=== PATIENT | female | born 1960 | race African-American/Black ===

== ENCOUNTER 2018-12-26 19:56 | Inpatient (IN) | payer SELFPAY ==
[~2018-12-26] VITALS: Ht 157.5 cm; Wt 83.0 kg
[2018-12-26] MEDS ORDERED: GLIPIZIDE XL10 MG ORAL (20:09)
--- NOTE | 2018-12-26 20:13 | Emergency Room Report ---
History of Present Illness General Chief Complaint: Stroke Symptoms Source: Patient, Family Member Present Illness HPI Is a 58-year-old female with a history of high blood pressure and diabetes. She presents with chief complaint of vision loss and speech difficulty. Onset was acute and occurred about 30 minutes ago. According to her daughter she lost vision on one side of her eye. He could not tell me which side since the patient is confused now. She has some difficulty speaking and her words did not make any sense. They got better the car on the way here but now same as before. At baseline patient is alert oriented 4. She is multilingual. According to her daughter she's not making much sense. There is no trauma. No fever or chills. [facility] most similar symptom in the past but patient never went to the doctor. Usually occur with problem with vision but never speech. No focal deficit. Allergies: Coded Allergies: UNABLE TO ASSESS (Unverified , 12/26/18) Patient History Past Medical History: see triage record, old chart reviewed, DM, HTN Past Surgical History: other Pertinent Family History: none Social History: Denies: smoking Now: No Immunizations: other Reviewed Nursing Documentation: PMH: Agreed; PSxH: Agreed Nursing Documentation-PMH Past Medical History: No History, Except For Hx Hypertension: Yes Hx Diabetes: Yes Review of Systems Eye: Reports: acuity changes; Denies: eye pain, blurred vision ENT: Denies: ear pain, nose congestion, throat swelling Respiratory: Denies: cough, shortness of breath Cardiovascular: Denies: chest pain, palpitations Gastrointestinal: Denies: abdominal pain, diarrhea, nausea, vomiting Musculoskeletal: Denies: back pain, joint pain Skin: Denies: rash Neurological: Denies: headache, numbness Endocrine: Denies: increased thirst, increased urine Hematologic/Lymphatic: Denies: easy bruising All Other Systems: negative except mentioned in HPI Physical Exam vitals with high blood pressure Sp02 EP Interpretation: reviewed, normal General Appearance: well appearing, no apparent distress, alert Head: normocephalic, atraumatic Eyes: bilateral eye PERRL, bilateral eye EOMI ENT: hearing grossly normal, normal pharynx Neck: full range of motion, supple, no meningismus Respiratory: chest non-tender, lungs clear, normal breath sounds Cardiovascular #1: regular rate, rhythm, no murmur Gastrointestinal: normal bowel sounds, non tender, no mass, no organomegaly, no bruit, non-distended Musculoskeletal: back normal, gait/station normal, normal range of motion Neurologic: alert, other - Patient with expressive aphasia. Psychiatric: mood/affect normal Skin: warm/dry Medical Decision Making Diagnostic Impression: Primary Impression: New onset seizure Additional Impressions: Hyperglycemia due to type 2 diabetes mellitus Qualified Codes: E11.65 - Type 2 diabetes mellitus with hyperglycemia Hypertension Qualified Codes: I10 - Essential (primary) hypertension UTI (urinary tract infection) Qualified Codes: N30.00 - Acute cystitis without hematuria ER Course Patient presents with symptoms of confusion and possible stroke. On initial exam she was confused with some expressive aphasia. There was no seizure activity. There is no focal deficit. After the first CT, she had a 32nd tonic- clonic seizure activity with right gaze deviation and left facial droop. Afterward she was postictal and had no focal deficit. I loaded her with Keppra. I also order CT angiogram the brain. Initially, I discussed the case with the neurologist Dr. Aguirre's PA. After she discussed the case with the neurologist, he recommended antiepileptic seizure loading and said that TPA candidate be considered versus transfer for endovascular TPA if there is embolic event. I held off on the TPA since she is now nonfocal. I suspect that this is due to seizure activity. CT is negative also. I discussed the case with Dr. Jacob and Dr. Boyce for admission. Lab Results Impression labs with hyperglycemia EKG Diagnostic Results Rate: normal Rhythm: NSR ST Segments: no acute changes ASA given to the pt in ED: Yes Rhythm Strip Diag. Results EP Interpretation: yes Rate: 91 Rhythm: NSR, no PVC's, no ectopy Chest X-Ray Diagnostic Results Chest X-Ray Diagnostic Results : Chest X-Ray Ordered: Yes # of Views/Limited/Complete: 1 View Indication: Chest Pain EP Interpretation: Yes Interpretation: no consolidation, no effusion, no pneumothorax, no acute cardiopulmonary disease Impression: No acute disease Electronically Signed by: Siva Coppola MD CT/MRI/US Diagnostic Results CT/MRI/US Diagnostic Results #1: Imaging Test Ordered: CT head Impression Neg per radiologist. CT/MRI/US Diagnostic Results #2: Imaging Test Ordered: CTA brain Impression Neg per radiologist. Status: improved Disposition: ADMITTED INPATIENT Condition: Serious Siva Coppola MD Dec 26, 2018 20:13
[2018-12-26 20:26] VITALS: BP 119/74
[2018-12-26 20:44] LABS: ANION GAP 10 mmol/L (5-15); BLOOD UREA NITROGEN 12 mg/dL (7-18); CARBON DIOXIDE 26 MMOL/L (21-32); CHLORIDE 97 MMOL/L (98-107); CREATININE 1.1 MG/DL (0.55-1.30); POTASSIUM 4.2 MMOL/L (3.5-5.1); SODIUM 133 MMOL/L (136-145)
[2018-12-26] MEDS ORDERED: Isovue-370 150ml vial INJ PRN (20:45)
[2018-12-26 20:46] LABS: EOSINOPHILS % (AUTO) 2.3 % (0.0-3.0); HEMATOCRIT 37.3 % (37.0-47.0); HEMOGLOBIN 12.2 G/DL (12.0-16.0); LYMPHOCYTES % (AUTO) 45.7 % (20.0-45.0); MEAN CORPUSCULAR VOLUME 88 FL (80-99); MONOCYTES % (AUTO) 7.4 % (1.0-10.0); NEUTROPHILS % (AUTO) 42.5 % (45.0-75.0); PLATELET COUNT 307 K/UL (150-450); RED BLOOD COUNT 4.22 M/UL (4.20-5.40); RED CELL DISTRIBUTION WIDTH 13.8 % (11.6-14.8); WHITE BLOOD COUNT 8.3 K/UL (4.8-10.8)
[2018-12-26 20:48] LABS: ALANINE AMINOTRANSFERASE 30 U/L (12-78); ALBUMIN 3.8 G/DL (3.4-5.0); ALBUMIN/GLOBULIN RATIO 0.9 (1.0-2.7); ALKALINE PHOSPHATASE 74 U/L (46-116); ASPARTATE AMINO TRANSFERASE 12 U/L (15-37); BILIRUBIN,TOTAL 0.2 MG/DL (0.2-1.0); CHOLESTEROL 245 MG/DL (< 200); HDL CHOLESTEROL 71 MG/DL (40-60); TRIGLYCERIDES 75 MG/DL (30-150)
[2018-12-26 20:53] LABS: INR 0.9 (0.9-1.1)
[2018-12-26 21:00] VITALS: BP 130/80
[2018-12-26] MEDS ORDERED: LORazepam Inj 2mg/ml 1ml IV ONE (21:15)
[2018-12-26] MEDS ORDERED: levETIRAcetam 1,000mg/NS100ml 100 ML IVPB ONE (21:15)
[2018-12-26] MEDS ORDERED: Insulin Human Regular 100units/ml 3ml IV ONE (21:30)
[2018-12-26 21:44] LABS: APPEARANCE,URINE CLEAR; BILIRUBIN, URINE NEGATIVE (NEGATIVE); COLOR,URINE PALE YELLOW; GLUCOSE, URINE (UA) 4+ (NEGATIVE); KETONES,URINE NEGATIVE (NEGATIVE); LEUKOCYTE ESTERASE ,URINE 3+ (NEGATIVE); NITRITE,URINE NEGATIVE (NEGATIVE); PH,URINE 5 (4.5-8.0); PROTEIN,URINE 1+ (NEGATIVE); UROBILINOGEN,URINE NORMAL MG/DL (0.0-1.0)
[2018-12-26] MEDS ORDERED: D5 1/2NS 1,000 ML IV SCH (21:50)
[2018-12-26] MEDS ORDERED: Promethazine/Codeine 5ml UD ORAL PRN (22:00)
[2018-12-26] MEDS ORDERED: Nitroglycerin Subl 0.4mg tab SL PRN (22:00)
[2018-12-26] MEDS ORDERED: LORazepam Inj 2mg/ml 1ml IV PRN (22:00)
[2018-12-26] MEDS ORDERED: Morphine Sulfate 2mg/ml Inj(IV/IM USE ONLY) IVP PRN (22:00)
[2018-12-26] MEDS ORDERED: Mylanta II UD 30ml ORAL PRN (22:00)
[2018-12-26] MEDS ORDERED: Miralax 17gm pkt ORAL PRN (22:00)
[2018-12-26] MEDS ORDERED: Albuterol/Ipratropium 3ml neb HHN PRN (22:00)
[2018-12-26] MEDS ORDERED: cefTRIAXone 1 GM in NS 55 ML IVPB ONE (22:30)
[2018-12-26 23:16] VITALS: BP 122/76
[2018-12-26 23:50] VITALS: BP 128/74
[2018-12-27] MEDS ORDERED: ASPIR 8181 MG ORAL (01:07)
[2018-12-27] MEDS ORDERED: METFORMIN HCL500 M1 ORAL (01:07)
[2018-12-27 04:00] VITALS: BP 117/69
[2018-12-27 06:37] LABS: BASOPHILS % (AUTO) 0.8 % (0.0-2.0); EOSINOPHILS % (AUTO) 0.8 % (0.0-3.0); HEMATOCRIT 37.8 % (37.0-47.0); HEMOGLOBIN 12.4 G/DL (12.0-16.0); MEAN CORPUSCULAR VOLUME 90 FL (80-99); MONOCYTES % (AUTO) 5.2 % (1.0-10.0); NEUTROPHILS % (AUTO) 65.2 % (45.0-75.0); PLATELET COUNT 303 K/UL (150-450); RED BLOOD COUNT 4.22 M/UL (4.20-5.40); RED CELL DISTRIBUTION WIDTH 14.6 % (11.6-14.8); WHITE BLOOD COUNT 8.3 K/UL (4.8-10.8)
[2018-12-27 06:45] LABS: ALANINE AMINOTRANSFERASE 29 U/L (12-78); ALBUMIN 3.6 G/DL (3.4-5.0); ALBUMIN/GLOBULIN RATIO 0.9 (1.0-2.7); ALKALINE PHOSPHATASE 67 U/L (46-116); ANION GAP 9 mmol/L (5-15); ASPARTATE AMINO TRANSFERASE 16 U/L (15-37); BILIRUBIN,TOTAL 0.3 MG/DL (0.2-1.0); BLOOD UREA NITROGEN 11 mg/dL (7-18); CALCIUM 9.7 MG/DL (8.5-10.1); CARBON DIOXIDE 27 MMOL/L (21-32); CHLORIDE 100 MMOL/L (98-107); CHOLESTEROL 233 MG/DL (< 200); CREATININE 0.8 MG/DL (0.55-1.30); HDL CHOLESTEROL 73 MG/DL (40-60); POTASSIUM 4.1 MMOL/L (3.5-5.1); SODIUM 136 MMOL/L (136-145); TRIGLYCERIDES 44 MG/DL (30-150)
[2018-12-27] MEDS ORDERED: GLIPIZIDE5 MG ORAL (07:08)
[2018-12-27] MEDS ORDERED: GLIPIZIDE XL10 MG ORAL (07:08)
[2018-12-27 07:21] LABS: AMMONIA 16 umol/L (11-32)
[2018-12-27] MEDS: NovoLOG Insulin Flexpen SUBQ SCH ×2 (07:30→11:30)
[2018-12-27 08:00] VITALS: BP 114/72
[2018-12-27] MEDS ORDERED: Aspirin EC 81mg tab ORAL SCH (09:00)
[2018-12-27] MEDS ORDERED: metFORMIN 500mg tab ORAL SCH (09:00)
[2018-12-27] MEDS ORDERED: Heparin 5000 units/ml inj SUBQ SCH (09:00)
--- NOTE | 2018-12-27 11:02 | Diagnostic Imaging Report ---
Indication: Altered Mental status. Technique: Continuous helical CT scanning of the head was performed without intravenous contrast material. Axial and coronal 5 mm sections were generated. Radiation dose was minimized using automated exposure control Dose: Total Dose Length Product - DLP 1322.[address] Dose Index - CTDIvol(s) 70.38 mGy. Comparison: None FINDINGS: There is no acute intracranial hemorrhage, mass effect or cortical edema. There is no shift of midline structures. Francis-white differentiation appears preserved. The ventricles, cisterns and sulci are normal for age. Visualized mastoid air cells are clear. Minimal paranasal sinus mucosal thickening is noted. No depressed calvarial fracture or focal skull lesion identified. IMPRESSION: No evidence of acute intracranial hemorrhage, mass effect or cortical edema. MRI may be obtained for more sensitive evaluation as clinically indicated. This corresponds with the preliminary report. The CT scanner at [facility] is accredited by the [employer] and the scans are performed using protocols designed to limit radiation exposure to as low as reasonably achievable to attain images of sufficient resolution adequate for diagnostic evaluation.
--- NOTE | 2018-12-27 11:06 | History and Physical ---
History of Present Illness General Date patient seen: Dec 27, 2018 Reason for Hospitalization: Stroke Symptoms Present Illness HPI 58 year old female with hx of DM, HTN, presented to ER with expressive aphasia and confusion and had a tonic clonic seizure in the ER. Pt was diagnosed to have most likely metabolic encephalopathy secondary to hyperglycemia. All of her symptoms resolved now. She is blaming the stress causing her to forget her diabetic medications. therefore her blood sugar viviane and caused her symptoms. Allergies: Coded Allergies: PENICILLINS (Verified Allergy, Unknown, 12/27/18) Medication History Scheduled Aspirin* (Aspir 81*), 81 MG ORAL DAILY, (Reported) Glipizide (Glipizide), 10 MG ORAL BID, (Reported) Metformin Hcl* (Metformin Hcl*), 1,000 MG ORAL TWICE A DAY, (Reported) Patient History Healthcare decision maker Resuscitation status Full Code Advanced Directive on File Past Medical/Surgical History Past Medical/Surgical History: (1) Diabetes mellitus (2) History of hypertension (3) Hypertension (4) Hyperglycemia due to type 2 diabetes mellitus Review of Systems Constitutional: Reports: no symptoms All Other Systems: negative except mentioned in HPI Physical Exam General Appearance: WD/WN, alert Lines, tubes and drains: peripheral HEENT: normocephalic, atraumatic Neck: non-tender, normal alignment Respiratory/Chest: chest wall non-tender, lungs clear Cardiovascular/Chest: normal peripheral pulses, normal rate, no JVD Abdomen: normal bowel sounds Genitourinary/Rectal: normal rectal exam Last 24 Hour Vital Signs Date Time Temp Pulse Resp B/P (MAP) Pulse Ox O2 Delivery O2 Flow Rate FiO2 12/27/18 09:00 Room Air 12/27/18 08:00 97.2 72 18 114/72 (86) 97 12/27/18 08:00 82 12/27/18 07:06 78 16 Room Air 21 12/27/18 04:00 97.8 73 20 117/69 (85) 98 12/27/18 04:00 73 12/27/18 00:30 Room Air 12/26/18 23:50 89 12/26/18 23:50 97.9 89 20 128/74 98 Room Air 12/26/18 23:50 97.9 89 20 128/74 (92) 98 12/26/18 23:16 98.3 90 22 122/76 96 Room Air 12/26/18 21:00 98.2 93 20 130/80 97 Room Air 12/26/18 20:26 96 22 119/74 97 Room Air Intake and Output 12/26/18 12/27/18 19:00 07:00 Intake Total 410 ml Balance 410 ml Intake IV Total 410 ml # Voids 3 Laboratory Tests Test 12/26/18 20:15 12/26/18 21:12 12/27/18 04:55 White Blood Count 8.3 K/UL (4.8-10.8) 8.3 K/UL (4.8-10.8) Red Blood Count 4.22 M/UL (4.20-5.40) 4.22 M/UL (4.20-5.40) Hemoglobin 12.2 G/DL (12.0-16.0) 12.4 G/DL (12.0-16.0) Hematocrit 37.3 % (37.0-47.0) 37.8 % (37.0-47.0) Mean Corpuscular Volume 88 FL (80-99) 90 FL (80-99) Mean Corpuscular Hemoglobin 28.9 PG (27.0-31.0) 29.4 PG (27.0-31.0) Mean Corpuscular Hemoglobin Concent 32.7 G/DL (32.0-36.0) 32.8 G/DL (32.0-36.0) Red Cell Distribution Width 13.8 % (11.6-14.8) 14.6 % (11.6-14.8) Platelet Count 307 K/UL (150-450) 303 K/UL (150-450) Mean Platelet Volume 6.6 FL (6.5-10.1) 7.5 FL (6.5-10.1) Neutrophils (%) (Auto) 42.5 % (45.0-75.0) L 65.2 % (45.0-75.0) Lymphocytes (%) (Auto) 45.7 % (20.0-45.0) H 28.0 % (20.0-45.0) Monocytes (%) (Auto) 7.4 % (1.0-10.0) 5.2 % (1.0-10.0) Eosinophils (%) (Auto) 2.3 % (0.0-3.0) 0.8 % (0.0-3.0) Basophils (%) (Auto) 2.0 % (0.0-2.0) 0.8 % (0.0-2.0) Prothrombin Time 10.0 SEC (9.30-11.50) 10.1 SEC (9.30-11.50) Prothromb Time International Ratio 0.9 (0.9-1.1) 1.0 (0.9-1.1) Activated Partial Thromboplast Time 26 SEC (23-33) 26 SEC (23-33) Sodium Level 133 MMOL/L (136-145) L 136 MMOL/L (136-145) Potassium Level 4.2 MMOL/L (3.5-5.1) 4.1 MMOL/L (3.5-5.1) Chloride Level 97 MMOL/L (98-107) L 100 MMOL/L (98-107) Carbon Dioxide Level 26 MMOL/L (21-32) 27 MMOL/L (21-32) Anion Gap 10 mmol/L (5-15) 9 mmol/L (5-15) Blood Urea Nitrogen 12 mg/dL (7-18) 11 mg/dL (7-18) Creatinine 1.1 MG/DL (0.55-1.30) 0.8 MG/DL (0.55-1.30) Estimat Glomerular Filtration Rate 51.3 mL/min (>60) > 60 mL/min (>60) Glucose Level 417 MG/DL (74-106) H 259 MG/DL (74-106) #H Calcium Level 10.0 MG/DL (8.5-10.1) 9.7 MG/DL (8.5-10.1) Total Bilirubin 0.2 MG/DL (0.2-1.0) 0.3 MG/DL (0.2-1.0) Aspartate Amino Transf (AST/SGOT) 12 U/L (15-37) L 16 U/L (15-37) Alanine Aminotransferase (ALT/SGPT) 30 U/L (12-78) 29 U/L (12-78) Alkaline Phosphatase 74 U/L (46-116) 67 U/L (46-116) Total Protein 8.2 G/DL (6.4-8.2) 7.6 G/DL (6.4-8.2) Albumin 3.8 G/DL (3.4-5.0) 3.6 G/DL (3.4-5.0) Globulin 4.4 g/dL 4.0 g/dL Albumin/Globulin Ratio 0.9 (1.0-2.7) L 0.9 (1.0-2.7) L Triglycerides Level 75 MG/DL (30-150) 44 MG/DL (30-150) Cholesterol Level 245 MG/DL (< 200) H 233 MG/DL (< 200) H LDL Cholesterol 155 mg/dL (<100) H 146 mg/dL (<100) H HDL Cholesterol 71 MG/DL (40-60) H 73 MG/DL (40-60) H Cholesterol/HDL Ratio 3.5 (3.3-4.4) 3.2 (3.3-4.4) L Urine Color Pale yellow Urine Appearance Clear Urine pH 5 (4.5-8.0) Urine Specific Barker 1.015 (1.005-1.035) Urine Protein 1+ (NEGATIVE) H Urine Glucose (UA) 4+ (NEGATIVE) H Urine Ketones Negative (NEGATIVE) Urine Blood Negative (NEGATIVE) Urine Nitrite Negative (NEGATIVE) Urine Bilirubin Negative (NEGATIVE) Urine Urobilinogen Normal MG/DL (0.0-1.0) Urine Leukocyte Esterase 3+ (NEGATIVE) H Urine RBC 2-4 /HPF (0 - 2) H Urine WBC 5-10 /HPF (0 - 2) H Urine Squamous Epithelial Cells Few /LPF (NONE/OCC) Urine Bacteria Few /HPF (NONE) Hemoglobin A1c Pending Ammonia 16 umol/L (11-32) Thyroid Stimulating Hormone (TSH) 0.711 uiU/mL (0.358-3.740) Height (Feet): 5 Height (Inches): 2.00 Weight (Pounds): 183 Medications Current Medications Medications (Trade) Dose Ordered Sig/Price Route PRN Reason Start Time Stop Time Status Last Admin Dose Admin Acetaminophen (Tylenol) 650 mg Q4H PRN ORAL fever 12/26/18 22:00 01/25/19 21:59 Al Hydroxide/Mg Hydroxide (Mylanta II) 30 ml Q6H PRN ORAL dyspepsia 12/26/18 22:00 01/25/19 21:59 Albuterol/ Ipratropium (Albuterol/ Ipratropium) 3 ml Q4H PRN HHN Shortness of Breath 12/26/18 22:00 12/31/18 21:59 Aspirin (Ecotrin) 81 mg DAILY ORAL 12/27/18 09:00 01/26/19 08:59 12/27/18 08:36 Clonidine HCl (Catapres Tab) 0.1 mg Q4H PRN ORAL For High Blood Pressure 12/26/18 22:00 01/25/19 21:59 Dextrose (Dextrose 50%) 25 ml Q30M PRN IV Hypoglycemia 12/27/18 07:30 01/26/19 07:29 Dextrose (Dextrose 50%) 50 ml Q30M PRN IV Hypoglycemia 12/27/18 07:30 01/26/19 07:29 Dextrose/Sodium Chloride 1,000 ml @ 50 mls/hr Q20H IV 12/26/18 21:50 01/25/19 21:49 12/27/18 00:41 Glipizide (Glucotrol) 10 mg BID ORAL 12/28/18 09:00 01/27/19 08:59 Heparin Sodium (Porcine) (Heparin 5000 units/ml) 5,000 units EVERY 12 HOURS SUBQ 12/27/18 09:00 01/26/19 08:59 Insulin Aspart (NovoLOG) BEFORE MEALS AND HS SUBQ 12/27/18 07:30 01/26/19 07:29 Lorazepam (Ativan 2mg/ml 1ml) 0.5 mg Q4H PRN IV For Anxiety 12/26/18 22:00 01/02/19 21:59 Metformin HCl (Glucophage) 1,000 mg TWICE A DAY ORAL 12/27/18 09:00 01/26/19 08:59 12/27/18 08:36 Morphine Sulfate (Morphine Sulfate) 1 mg Q4H PRN IVP For Pain 7-10 12/26/18 22:00 01/02/19 21:59 Nitroglycerin (Ntg) 0.4 mg Q5M X 3 DOSES PRN SL Prn Chest Pain 12/26/18 22:00 01/25/19 21:59 Ondansetron HCl (Zofran) 4 mg Q6H PRN IVP Nausea & Vomiting 12/26/18 22:00 01/25/19 21:59 Polyethylene Glycol (Miralax) 17 gm HSPRN PRN ORAL Constipation 12/26/18 22:00 01/25/19 21:59 Promethazine HCl/ Codeine (Phenergan with Codeine) 5 ml Q4H PRN ORAL For Cough 12/26/18 22:00 01/25/19 21:59 Temazepam (Restoril) 15 mg HSPRN PRN ORAL Insomnia 12/26/18 22:00 01/02/19 21:59 Assessment/Plan Problem List: (1) Acute metabolic encephalopathy ICD Codes: G93.41 - Metabolic encephalopathy SNOMED: 30825145, 368268593 (2) Hyperosmolar coma ICD Codes: E11.01 - Type 2 diabetes mellitus with hyperosmolarity with coma SNOMED: 109625121 (3) Hyperglycemia due to type 2 diabetes mellitus ICD Codes: E11.65 - Type 2 diabetes mellitus with hyperglycemia SNOMED: 636233676836791, [id number] Qualifiers: Qualified Codes: E11.65 - Type 2 diabetes mellitus with hyperglycemia (4) History of hypertension ICD Codes: Z86.79 - Personal history of other diseases of the circulatory system SNOMED: 269601719 (5) Diabetes mellitus ICD Codes: E11.9 - Type 2 diabetes mellitus without complications SNOMED: 56367777 (6) New onset seizure ICD Codes: R56.9 - Unspecified convulsions SNOMED: 01029503, 41888180 (7) Hypertension ICD Codes: I10 - Essential (primary) hypertension SNOMED: 57097006, 00710218 Qualifiers: Qualified Codes: I10 - Essential (primary) hypertension Treatment Plan: pt is asymptomatic now and want to go home She is refusing insulin. will dc her with oral diabetic agents. Jose A Rojo and Mahnaz López MD Dec 27, 2018 11:06
--- NOTE | 2018-12-27 11:09 | Consultation ---
History of Present Illness General Date patient seen: Dec 27, 2018 Chief Complaint: Stroke Symptoms Referring physician: Dr. Fadi Jacob Present Illness HPI Sylwia Villa is a 58-year-old female with a history of high blood pressure and diabetes. She presents with chief complaint of vision loss and speech difficulty. Her onset was acute and LKWT was 30 minutes prior to her presentation to [facility] [place] emergency department. According to her daughter she lost vision on one side of her eye and upon presentation to the ED she had some difficulty speaking and paraphrasic errors. At baseline patient is alert oriented 4. She is multilingual. During her ED course, her symptoms resolved and her speech returned to normal. At the time of my interview, patient had no focal deficits or paraphrasic errors on exam .No focal deficit. Allergies: Coded Allergies: PENICILLINS (Verified Allergy, Unknown, 12/27/18) Medication History Scheduled Aspirin* (Aspir 81*), 81 MG ORAL DAILY, (Reported) Glipizide (Glipizide), 10 MG ORAL BID, (Reported) Metformin Hcl* (Metformin Hcl*), 1,000 MG ORAL TWICE A DAY, (Reported) Nateglinide* (Starlix*), 60 MG ORAL TIAC Sitagliptin (Januvia), 100 MG ORAL ACBREAKFAST Patient History Healthcare decision maker Resuscitation status Full Code Advanced Directive on File Past Medical/Surgical History Past Medical/Surgical History: (1) Diabetes mellitus (2) History of hypertension (3) Acute metabolic encephalopathy Review of Systems Constitutional: Denies: no symptoms, see HPI, chills, sweats, fever, malaise, weakness, other Eye: Denies: no symptoms, see HPI, eye pain, blurred vision, tearing, double vision, nose pain, nose congestion, acuity changes, discharge, other ENT: Denies: no symptoms, see HPI, ear pain, ear discharge, nose pain, nose congestion, throat pain, throat swelling, mouth pain, hearing loss, nasal discharge, other Respiratory: Denies: no symptoms, see HPI, cough, orthopnea, shortness of breath, stridor, wheezing, CLARK, sputum, other Cardiovascular: Denies: no symptoms, see HPI, chest pain, edema, palpitations, syncope, PND, other Gastrointestinal: Denies: no symptoms, see HPI, abdominal pain, constipation, diarrhea, nausea, vomiting, melena, hematemesis, other Genitourinary: Denies: no symptoms, see HPI, discharge, dysuria, frequency, hematuria, pain, retention, incontinence, urgency, vag bleed/dc, other Musculoskeletal: Denies: no symptoms, see HPI, back pain, gout, joint pain, joint swelling, muscle pain, muscle stiffness, other Skin: Denies: no symptoms, see HPI, rash, change in color, change in hair/nails , dryness, lesions, other Psychiatric: Denies: no symptoms, see HPI, prior hx, anxiety, depressed feelings, emotional problems, SI, HI, hallucinations, other Neurological: Denies: no symptoms, see HPI, headache, numbness, paresthesia, seizure, tingling, tremors, focal weakness, syncope, dizziness, other Endocrine: Denies: no symptoms, see HPI, excessive sweating, flushing, intolerance to temperature, increased thirst, increased urine, unexplained weight loss, other Hematologic/Lymphatic: Denies: no symptoms, see HPI, anemia, blood clots, easy bleeding, easy bruising, swollen glands, diathesis, other Physical Exam General Appearance: WD/WN, no apparent distress, alert, lethargic, confused, mild distress Lines, tubes and drains: peripheral HEENT: normocephalic, atraumatic, anicteric, mucous membranes moist, PERRL Neck: non-tender, normal alignment, supple, normal inspection Extremities: normal inspection, no calf tenderness Skin Exam: normal pigmentation, warm/dry Neurologic: racquet maker II-XII grossly normal, no motor/sensory deficits, alert, oriented x 3, responsive, normal mood/affect Musculoskeletal: normal muscle bulk Last 24 Hour Vital Signs Date Time Temp Pulse Resp B/P (MAP) Pulse Ox O2 Delivery O2 Flow Rate FiO2 12/27/18 09:00 Room Air 12/27/18 08:00 97.2 72 18 114/72 (86) 97 12/27/18 08:00 82 12/27/18 07:06 78 16 Room Air 21 12/27/18 04:00 97.8 73 20 117/69 (85) 98 12/27/18 04:00 73 12/27/18 00:30 Room Air 12/26/18 23:50 89 12/26/18 23:50 97.9 89 20 128/74 98 Room Air 12/26/18 23:50 97.9 89 20 128/74 (92) 98 12/26/18 23:16 98.3 90 22 122/76 96 Room Air 12/26/18 21:00 98.2 93 20 130/80 97 Room Air 12/26/18 20:26 96 22 119/74 97 Room Air Intake and Output 12/26/18 12/27/18 19:00 07:00 Intake Total 410 ml Balance 410 ml Intake IV Total 410 ml # Voids 3 Laboratory Tests Test 12/26/18 20:15 12/26/18 21:12 12/27/18 04:55 White Blood Count 8.3 K/UL (4.8-10.8) 8.3 K/UL (4.8-10.8) Red Blood Count 4.22 M/UL (4.20-5.40) 4.22 M/UL (4.20-5.40) Hemoglobin 12.2 G/DL (12.0-16.0) 12.4 G/DL (12.0-16.0) Hematocrit 37.3 % (37.0-47.0) 37.8 % (37.0-47.0) Mean Corpuscular Volume 88 FL (80-99) 90 FL (80-99) Mean Corpuscular Hemoglobin 28.9 PG (27.0-31.0) 29.4 PG (27.0-31.0) Mean Corpuscular Hemoglobin Concent 32.7 G/DL (32.0-36.0) 32.8 G/DL (32.0-36.0) Red Cell Distribution Width 13.8 % (11.6-14.8) 14.6 % (11.6-14.8) Platelet Count 307 K/UL (150-450) 303 K/UL (150-450) Mean Platelet Volume 6.6 FL (6.5-10.1) 7.5 FL (6.5-10.1) Neutrophils (%) (Auto) 42.5 % (45.0-75.0) L 65.2 % (45.0-75.0) Lymphocytes (%) (Auto) 45.7 % (20.0-45.0) H 28.0 % (20.0-45.0) Monocytes (%) (Auto) 7.4 % (1.0-10.0) 5.2 % (1.0-10.0) Eosinophils (%) (Auto) 2.3 % (0.0-3.0) 0.8 % (0.0-3.0) Basophils (%) (Auto) 2.0 % (0.0-2.0) 0.8 % (0.0-2.0) Prothrombin Time 10.0 SEC (9.30-11.50) 10.1 SEC (9.30-11.50) Prothromb Time International Ratio 0.9 (0.9-1.1) 1.0 (0.9-1.1) Activated Partial Thromboplast Time 26 SEC (23-33) 26 SEC (23-33) Sodium Level 133 MMOL/L (136-145) L 136 MMOL/L (136-145) Potassium Level 4.2 MMOL/L (3.5-5.1) 4.1 MMOL/L (3.5-5.1) Chloride Level 97 MMOL/L (98-107) L 100 MMOL/L (98-107) Carbon Dioxide Level 26 MMOL/L (21-32) 27 MMOL/L (21-32) Anion Gap 10 mmol/L (5-15) 9 mmol/L (5-15) Blood Urea Nitrogen 12 mg/dL (7-18) 11 mg/dL (7-18) Creatinine 1.1 MG/DL (0.55-1.30) 0.8 MG/DL (0.55-1.30) Estimat Glomerular Filtration Rate 51.3 mL/min (>60) > 60 mL/min (>60) Glucose Level 417 MG/DL (74-106) H 259 MG/DL (74-106) #H Calcium Level 10.0 MG/DL (8.5-10.1) 9.7 MG/DL (8.5-10.1) Total Bilirubin 0.2 MG/DL (0.2-1.0) 0.3 MG/DL (0.2-1.0) Aspartate Amino Transf (AST/SGOT) 12 U/L (15-37) L 16 U/L (15-37) Alanine Aminotransferase (ALT/SGPT) 30 U/L (12-78) 29 U/L (12-78) Alkaline Phosphatase 74 U/L (46-116) 67 U/L (46-116) Total Protein 8.2 G/DL (6.4-8.2) 7.6 G/DL (6.4-8.2) Albumin 3.8 G/DL (3.4-5.0) 3.6 G/DL (3.4-5.0) Globulin 4.4 g/dL 4.0 g/dL Albumin/Globulin Ratio 0.9 (1.0-2.7) L 0.9 (1.0-2.7) L Triglycerides Level 75 MG/DL (30-150) 44 MG/DL (30-150) Cholesterol Level 245 MG/DL (< 200) H 233 MG/DL (< 200) H LDL Cholesterol 155 mg/dL (<100) H 146 mg/dL (<100) H HDL Cholesterol 71 MG/DL (40-60) H 73 MG/DL (40-60) H Cholesterol/HDL Ratio 3.5 (3.3-4.4) 3.2 (3.3-4.4) L Urine Color Pale yellow Urine Appearance Clear Urine pH 5 (4.5-8.0) Urine Specific [place] 1.015 (1.005-1.035) Urine Protein 1+ (NEGATIVE) H Urine Glucose (UA) 4+ (NEGATIVE) H Urine Ketones Negative (NEGATIVE) Urine Blood Negative (NEGATIVE) Urine Nitrite Negative (NEGATIVE) Urine Bilirubin Negative (NEGATIVE) Urine Urobilinogen Normal MG/DL (0.0-1.0) Urine Leukocyte Esterase 3+ (NEGATIVE) H Urine RBC 2-4 /HPF (0 - 2) H Urine WBC 5-10 /HPF (0 - 2) H Urine Squamous Epithelial Cells Few /LPF (NONE/OCC) Urine Bacteria Few /HPF (NONE) Hemoglobin A1c Pending Ammonia 16 umol/L (11-32) Thyroid Stimulating Hormone (TSH) 0.711 uiU/mL (0.358-3.740) Height (Feet): 5 Height (Inches): 2.00 Weight (Pounds): 183 Medications Current Medications Medications (Trade) Dose Ordered Sig/Price Route PRN Reason Start Time Stop Time Status Last Admin Dose Admin Acetaminophen (Tylenol) 650 mg Q4H PRN ORAL fever 12/26/18 22:00 01/25/19 21:59 Al Hydroxide/Mg Hydroxide (Mylanta II) 30 ml Q6H PRN ORAL dyspepsia 12/26/18 22:00 01/25/19 21:59 Albuterol/ Ipratropium (Albuterol/ Ipratropium) 3 ml Q4H PRN HHN Shortness of Breath 12/26/18 22:00 12/31/18 21:59 Aspirin (Ecotrin) 81 mg DAILY ORAL 12/27/18 09:00 01/26/19 08:59 12/27/18 08:36 Clonidine HCl (Catapres Tab) 0.1 mg Q4H PRN ORAL For High Blood Pressure 12/26/18 22:00 01/25/19 21:59 Dextrose (Dextrose 50%) 25 ml Q30M PRN IV Hypoglycemia 12/27/18 07:30 01/26/19 07:29 Dextrose (Dextrose 50%) 50 ml Q30M PRN IV Hypoglycemia 12/27/18 07:30 01/26/19 07:29 Glipizide (Glucotrol) 10 mg BID ORAL 12/28/18 09:00 01/27/19 08:59 Heparin Sodium (Porcine) (Heparin 5000 units/ml) 5,000 units EVERY 12 HOURS SUBQ 12/27/18 09:00 01/26/19 08:59 Insulin Aspart (NovoLOG) BEFORE MEALS AND HS SUBQ 12/27/18 07:30 01/26/19 07:29 Lorazepam (Ativan 2mg/ml 1ml) 0.5 mg Q4H PRN IV For Anxiety 12/26/18 22:00 01/02/19 21:59 Metformin HCl (Glucophage) 1,000 mg TWICE A DAY ORAL 12/27/18 09:00 01/26/19 08:59 12/27/18 08:36 Nateglinide (Starlix) 60 mg TIAC ORAL 12/27/18 11:30 01/26/19 11:29 UNV Ondansetron HCl (Zofran) 4 mg Q6H PRN IVP Nausea & Vomiting 12/26/18 22:00 01/25/19 21:59 Polyethylene Glycol (Miralax) 17 gm HSPRN PRN ORAL Constipation 12/26/18 22:00 01/25/19 21:59 Promethazine HCl/ Codeine (Phenergan with Codeine) 5 ml Q4H PRN ORAL For Cough 12/26/18 22:00 01/25/19 21:59 Sitagliptin Phosphate (Januvia) 100 mg ACBREAKFAST ORAL 12/28/18 06:30 01/27/19 06:29 UNV Temazepam (Restoril) 15 mg HSPRN PRN ORAL Insomnia 12/26/18 22:00 01/02/19 21:59 Assessment/Plan Problem List: (1) Diabetes mellitus ICD Codes: E11.9 - Type 2 diabetes mellitus without complications SNOMED: 88193563 Qualifiers: (2) Acute metabolic encephalopathy Assessment & Plan: Possible ischemic episode with negative CTA of Head / Neck and CT Brain Complete resolution of aphasia/ confusion symptoms. No demonstration of focal deficits. RECOMMENDATIONS: Check HgBA1c TSH Troponin Start ASA 81mg Lipid Panel Start Atorvastatin 40mg Check ECHO CT A Head/ Neck - grossly normal with no significant vessel stenosis or flow deficits noted. ICD Codes: G93.41 - Metabolic encephalopathy SNOMED: 65443281, [id number] (3) History of hypertension ICD Codes: Z86.79 - Personal history of other diseases of the circulatory system SNOMED: 733230236 Status: doing well, stable Daisy Benson N.P. Dec 27, 2018 11:09
[2018-12-27] MEDS ORDERED: JANUVIA100 MG ORAL (11:10)
[2018-12-27] MEDS ORDERED: STARLIX60 MG ORAL (11:10)
--- NOTE | 2018-12-27 11:23 | Diagnostic Imaging Report ---
Indication: Altered mental status Technique: CT angiogram of the head performed utilizing automated exposure control with intravenous contrast. Axial, sagittal and coronal reconstructions were obtained. Maximal intensity projections and 3-D volumetric reconstructions were also performed. CT dose: Total DLP 2393 mGycm; CTDI vol 0.2, 0.2, 16.5, 16.5, 247.6, 55, 55 mGy Comparison: None FINDINGS: Note that angiogram is limited due to suboptimal timing with venous contamination. Note that this may obscure subtle abnormalities. The bilateral internal carotid arteries and major branch vessels of the bilateral anterior and middle cerebral arteries are patent and without evidence of significant stenosis, occlusion or aneurysm. Right A1 segment is slightly tortuous. Bilateral vertebral arteries are patent and normal in caliber and without evidence of stenosis, occlusion or aneurysm. No definite focus of abnormal postcontrast enhancement is noted within the brain. IMPRESSION: Limited exam as above. Patent [place] of [place]. No evidence of large vessel significant stenosis, occlusion or aneurysm. No focus of abnormal parenchymal postcontrast enhancement. The CT scanner at [facility] is accredited by the [employer] and the scans are performed using protocols designed to limit radiation exposure to as low as reasonably achievable to attain images of sufficient resolution adequate for diagnostic evaluation.
[2018-12-27] MEDS ORDERED: Nateglinide 60mg tab ORAL SCH (11:30)
[2018-12-27] MEDS ORDERED: levETIRAcetam 1,000mg/NS100ml 100 ML IVPB SCH (12:00)
--- NOTE | 2018-12-27 12:52 | Cardiology Report ---
APPROVED REPORT EXAM: Two-dimensional and M-mode echocardiogram with Doppler and color Doppler. INDICATION LV function M-Mode DIMENSIONS IVSd1.2 (0.7-1.1cm)Left Atrium (MM)3.4 (1.6-4.0cm) LVDd3.1 (3.5-5.6cm)Aortic Root2.3 (2.0-3.7cm) PWd1.1 (0.7-1.1cm)Aortic Cusp Exc.1.6 (1.5-2.0cm) LVDs1.9 (2.5-4.0cm) PWs1.6 cm Normal left ventricular chamber size, systolic function and wall motion. Left ventricular ejection fraction estimated to be 60 %. Borderline left ventricular hypertrophy. No evidence of pericardial effusion. All other cardiac chamber sizes are within normal limits. Focal aortic valve sclerosis with adequate cusp excursion. Thickened mitral valve leaflets with normal excursion. Mitral annulus and aortic root calcification. Pulmonic valve not well visualized. Normal tricuspid valve structure. IVC at normal size with physiologic collapse. A color flow and spectral Doppler study was performed and revealed: Trace mitral regurgitation. Mitral diastolic velocities suggest reduced left ventricular relaxation c/w mild LV diastolic dysfunction (Grade I). Trace to mild tricuspid regurgitation. Tricuspid systolic velocities suggests peak right ventricular systolic pressure of 33 mmHg.
--- NOTE | 2018-12-27 12:53 | Diagnostic Imaging Report ---
Indication: Altered mental status Technique: XRAY Chest 1v Comparison: None Findings: Limited exam with low lung volumes. Heart appears borderline enlarged and the pulmonary vascularity appears prominent. There is no definite focal airspace consolidation. No pleural effusion or pneumothorax. No appreciable acute osseous abnormality. IMPRESSION: Heart appears borderline enlarged and the pulmonary vascularity appears prominent. Findings may be artifactual related to low lung volumes. The possibility of mild congestive changes should be excluded clinically. PA and lateral views may be obtained for better assessment as clinically indicated. No focal airspace consolidation, pleural effusion or pneumothorax.
--- NOTE | 2018-12-27 13:31 | Cardiology Report ---
APPROVED REPORT EKG Measurement Heart [id number] Normal sinus rhythm Possible Left atrial enlargement Borderline ECG
[2018-12-27] MEDS ORDERED: D5 1/2NS 1000ml IV ONE (14:40)
[2018-12-28] MEDS ORDERED: GlipiZIDE 5mg tab ORAL SCH (09:00)
--- NOTE | 2018-12-29 12:24 | Discharge Summary ---
Discharge Summary Discharge Summary _ DATE OF ADMISSION: 12/26/2018 DATE OF DISCHARGE: 12/27/2018 DISCHARGED BY: Dr. Jacob REASON FOR ADMISSION: 58 years old female with past medical history of hypertension and diabetes mellitus, presented with chief complaint of loss of vision and speech difficulty. Symptoms appeared acute about 30 minutes prior to presentation to ED. According to daughter she lost vision on one side , but could not tell which side, since the patient was confused Upon presentation patient had difficulty speaking and her words did not make any sense. At baseline patient awake, alert , and oriented x4 and multilingual. No reported trauma or fall , no fever or chills. Patient presented confused, with no focal deficit, Upon evaluation vital signs were stable. Laboratory workup revealed no leukocytosis ,stable hemoglobin and hematocrit. Glucose 417 Sodium 133. Lipid panel revealed total cholesterol 245, LDL 155, HDL 71. Urinalysis revealed evidence of pyuria and few bacteria. CT of the head demonstrated no acute intracranial hemorrhage, mass-effect or cortical edema. After the CT scan, patient had a 32nd tonic-clonic seizure activity with right gaze deviation and left facial droop. Afterward she was postictal and had no focal deficit. Patient was loaded with Keppra. Chest x-ray demonstrated no acute cardiopulmonary pathology. CTA brain showed patent [place]. No evidence of large vessel significant stenosis, occlusion or aneurysm.. Patient subsequently admitted to telemetry floor for further management CONSULTANTS: neurologist Dr. Beard pulmonary Dr. Boyce [facility]SE: Patient admitted to telemetry floor. Seizure precautions mainlined, No further seizure activity while in the hospital. Patient was continued on Keppra. Patient started on generous IV hydration. Patient declined insulin. Blood sugar was managed with oral anti-glycemic (Metformin and Glipizide), and Januvia and Starlix were added. Sliding scale of insulin implemented as needed. Blood sugar trended down and prior to discharge 259. Hemoglobin A1c -11.2 clearly not at goal. Patient was counseled on compliance with anti-glycemic regimen and diabetic diet. Patient was strongly encouraged to follow-up with her primary care provider on a routine basis to bring blood sugar under control. Venous duplex bilateral lower extremity extremity revealed no evidence of acute DVT. DVT prophylaxis provided. Pulse oximetry was stable on room air. No evidence of arrhythmia on telemetry. Echocardiogram revealed preserved ejection fraction of 60% with borderline left ventricular hypertrophy. No evidence of pericardial effusion. No evidence of wall motion abnormality. Right ventricular systolic pressure of 33. Neurologist seen and evaluated patient. CT head grossly normal. Neurologist recommended Aspirin and statin. Lipid panel revealed elevated total cholesterol and LDL. Patient declined starting statin at this time. Patient was counseled on diabetic low cholesterol low fat diabetic diet. Patient clinically improved and was ready for discharge home. Acute metabolic encephalopathy was due to severe hyperglycemia and seizure episode, and resolved with treatment of hyperglycemia. Patient strongly encouraged to comply with anti-glycemic regimen and follow-up with primary care provider. Recommended follow up with neurologist as outpatient. Due to rapid and unexpected improvement in patient condition , patient was discharged in 1 day. FINAL DIAGNOSES: New-onset of seizure Acute metabolic encephalopathy secondary to hypoglycemia Hyperosmolar coma resolved Hyperglycemia due to type 2 diabetes mellitus Hypertension Hypercholesterolemia DISCHARGE MEDICATIONS: See Medication Reconciliation list. DISCHARGE INSTRUCTIONS: Patient was discharged home . Follow up with primary care provider in one week. I have been assigned to dictate discharge summary for this account. I was not involved in the patient's management. Faye Palafox NP Dec 29, 2018 12:24
--- NOTE | 2019-01-05 22:56 | Diagnostic Imaging Report ---
APPROVED REPORT CPT Code: 10364 Present Symptoms Comments: Screening BILATERAL: Imaging reveals a patent deep venous system bilaterally. There is no evidence of thrombus within the common femoral, superficial femoral, popliteal or tibial segments. The greater saphenous veins are within normal limits. Doppler indicates normal spontaneous flow within these segments.
--- NOTE | 2019-01-05 22:57 | Diagnostic Imaging Report ---
APPROVED REPORT CPT Code: 72473 Vascular Symptoms CVA/TIA: CAROTID (BILATERAL) - Imaging reveals no significant plaque within the right and left extracranial carotid arteries. The Doppler spectral flow analysis is within normal limits throughout the extracranial carotid arteries bilaterally. VERTEBRAL/SUBCLAVIAN- The vertebral and subclavian arteries are within normal limits.
== END 2018-12-27 14:41 | disposition home or self-care (01) | DRG 637 ==
LOC: EMR 20:29 → 2E 22:06 → EDBEDREQ 23:10
DX: E11.01 Type 2 diabetes mellitus with hyperosmolarity with coma (principal); G93.41 Metabolic encephalopathy; R56.9 Unspecified convulsions; E11.65 Type 2 diabetes mellitus with hyperglycemia; I10 Essential (primary) hypertension; E78.00 Pure hypercholesterolemia, unspecified; Z88.0 Allergy status to penicillin; Z79.84 Long term (current) use of oral hypoglycemic drugs; Z79.82 Long term (current) use of aspirin
CPT/HCPCS: 36415; 70450; 70496; 71045; 80053; 80061; 81003; 82140; 82962; 83036; 84443; 85025; 85610; 85730; 93005; 93306; 93880; 93970; 94664; 96365; 96375; 99285; J1815